=== PATIENT | male | born 1950 | race Caucasian/White ===

== ENCOUNTER → 2020-03-13 10:40 | Outpatient (BNVA) | payer MEDICARE, SELFPAY | PROVIDERS: PCP Neuromusculoskeletal Medicine, Sports Medicine; Referring Provider Neuromusculoskeletal Medicine, Sports Medicine; Visit Provider Urology | DX: R97.20 Elevated prostate specific antigen [PSA] (principal); N40.1 Benign prostatic hyperplasia with lower urinary tract symptoms; R35.1 Nocturia | CPT/HCPCS: Q3014 ==

== ENCOUNTER → 2020-05-01 14:50 | Outpatient (BNVA) | payer MEDICARE, SELFPAY | PROVIDERS: PCP Neuromusculoskeletal Medicine, Sports Medicine; Visit Provider Urology | DX: Z76.89 Persons encountering health services in other specified circumstances (principal) | CPT/HCPCS: Q3014 ==

== ENCOUNTER → 2020-09-18 09:24 | Outpatient (BNVA) | payer MEDICARE, SELFPAY | PROVIDERS: PCP Neuromusculoskeletal Medicine, Sports Medicine; Visit Provider Urology | DX: N40.1 Benign prostatic hyperplasia with lower urinary tract symptoms (principal); R35.1 Nocturia; N52.01 Erectile dysfunction due to arterial insufficiency; R97.20 Elevated prostate specific antigen [PSA] | CPT/HCPCS: 99212 ==

== ENCOUNTER → 2021-04-28 13:15 | Outpatient (BNVA) | payer MEDICARE, SELFPAY | PROVIDERS: PCP Neuromusculoskeletal Medicine, Sports Medicine; Visit Provider Urology | DX: Z13.89 Encounter for screening for other disorder (principal) | CPT/HCPCS: 99212 ==

== ENCOUNTER → 2021-06-01 14:33 | Outpatient (BNVA) | payer MEDICARE, SELFPAY | PROVIDERS: PCP Neuromusculoskeletal Medicine, Sports Medicine; Visit Provider Urology | DX: R97.20 Elevated prostate specific antigen [PSA] (principal); N28.1 Cyst of kidney, acquired; N40.1 Benign prostatic hyperplasia with lower urinary tract symptoms; R35.1 Nocturia | CPT/HCPCS: Q3014 ==

== ENCOUNTER → 2021-06-29 10:26 | Outpatient (BNVA) | payer MEDICARE, SELFPAY | PROVIDERS: PCP Neuromusculoskeletal Medicine, Sports Medicine; Visit Provider Urology | DX: Z13.89 Encounter for screening for other disorder (principal) | CPT/HCPCS: Q3014 ==

== ENCOUNTER → 2021-12-31 08:19 | Outpatient (BNVA) | payer MEDICARE, SELFPAY | PROVIDERS: PCP Neuromusculoskeletal Medicine, Sports Medicine; Visit Provider Urology | DX: N40.1 Benign prostatic hyperplasia with lower urinary tract symptoms (principal); R35.1 Nocturia; N52.01 Erectile dysfunction due to arterial insufficiency; R97.20 Elevated prostate specific antigen [PSA] | CPT/HCPCS: Q3014 ==